=== PATIENT | male | born 1995 | race Caucasian/White ===

== ENCOUNTER 2019-07-22 07:08 | Day surgery (SDC) | payer OTHER, SELFPAY ==
[2019-07-21 16:10] VITALS: BMI 27.6
[2019-07-22] VITALS (9 sets, daily range): BP systolic 102–129; BP diastolic 57–87; PULSE 60–86; RESP 17–20; TEMP 36.2–36.7; O2SAT 94–100
[2019-07-22] MEDS: sodium chloride 0.9% 1,000 ML 30 ML IV (08:00)
--- NOTE | 2019-07-22 08:49 | ANES.PREANES ---
Pre-Anesthetic Assessment Pre-Anesthetic Assessment: Height/Weight: Height 1.85 m Weight 94.801 kg Temp Pulse Resp BP Pulse Ox 97.9 F 78 18 129/83 100 07/22/19 07:23 07/22/19 07:23 07/22/19 07:23 07/22/19 07:23 07/22/19 07:23 Preop Diagnosis: LOOSE BODY RIGHT KNEE Proposed Procedure: Operation Date: 07/22/19 08:40 Proposed Procedures p Knee Arthroscopy 92753 M23.41(Right) - Tim Acuña MD Social: Social History: Tobacco and No alcohol Exam: Pre-Anes Outpt Exam: alert, oriented x 3, clear to auscultation bilaterally and regular rate & rhythm Airway: Submandibular: WNL Cervical ROM: WNL MP: 2 History/ROS: No significant history except as noted Pulmonary: Pulmonary: None reported CV/HEM: CV/HEM: None reported : : None reported Hepatic: Hepatic: None reported GI: GI: GERD Metabolic: Metabolic: None reported Musc/skel: Musc/skel: None reported Neuropsych: Neuropsych: None reported Anesthetic Plan: ASA status: II Anesthesia: Anesthesia Evaluation and General Risk of > 500 ml blood loss (7ml/kg in children): No Meds/Allergies Current Medications: Current Medications Generic Name Dose Route Start Last Admin Trade Name Freq PRN Reason Stop Dose Admin Sodium Chloride 1,000 mls @ 30 ml s/hr 07/22/19 07:30 07/22/19 08:00 Sodium Chloride 0.9% IV 07/23/19 07:29 30 mls/hr .Q24H ROMEO Administration Data Anesthesia Cardiac Studies: No Data to Display
--- NOTE | 2019-07-22 08:58 | PM.HPUD ---
H&P update H&P Update: DATE OF SURGERY/PROCEDURE: 07/22/19 DATE H&P PERFORMED: 07/23/19 H&P UPDATE INFORMATION: H&P completed within last 30 days and No changes to prior documentation PREOP DIAGNOSIS: Loose body right knee PRIMARY INDICATION FOR PROCEDURE: Pain and popping right knee PLANNED PROCEDURE: Operation Date: 07/22/19 08:40 Proposed Procedures p Knee Arthroscopy 80578 M23.41(Right) - Tim Acuña MD Full H&P Medications/Allergies: Current Medications: Current Medications Generic Name Dose Route Start Last Admin Trade Name Freq PRN Reason Stop Dose Admin Sodium Chloride 1,000 mls @ 30 ml s/hr 07/22/19 07:30 07/22/19 08:00 Sodium Chloride 0.9% IV 07/23/19 07:29 30 mls/hr .Q24H ROMEO Administration
[2019-07-22] MEDS: morphine 4 mg/mL SDV 1 mL IVP (09:18)
--- NOTE | 2019-07-22 10:14 | SUR.PHASEI ---
1008 PATIENT TO PACU VIA GURNEY FROM OR AT THIS TIME. RR EVEN AND UNLABORED. PWD. BULKY DRESSING IN PLACE WITH CHERYL WRAP TO RIGHT KNEE. CDI. PULSE PRESENT AND MARKED, CAP REFILL <3 SECONDS.
--- NOTE | 2019-07-22 10:15 | P.OP_ITS ---
Operative Report Date of procedure: 07/22/19 Pre-op Diagnosis: Loose body right knee Post-op diagnosis: same Post-op Findings: Patient had a large loose body approximately 12 mm in diameter embedded in the lateral retinaculum Procedure Done: Removal loose body rigth knee Pathology: none sent Surgeon: Tim Acuña Anesthesia: General Estimated blood loss (mL): 10 Tourniquet time (min): 25 Complications: None Findings: Patient had a loose body approximately 12 mm in diameter embedded in the lateral retinaculum Condition: stable Disposition: PACU Brief History: The patient is a 24-year-old male with mechanical popping and pain over his lateral joint line and a palpable loose body. Removal of the loos e body was chosen to eliminate pain and mechanical symptoms Procedure: The patient was taken to the operating room and given a general anesthesia. He is given 2 g of Ancef. His knee was prepped and infiltrated with 30 cc of 0.5% Marcaine with epi and 10 mg of morphine. A timeout was performed and the leg was draped in the usual fashion. The knee was entered through a standard inferior medial and inferior lateral portal. Diagnostic portion of the arthroscopy was performed. The large loose body was seen embedded within the lateral retinaculum and several smaller loose bodies were identified. The scope was then moved to the medial portal and working through the lateral portal with a shaver I directed the shaver away from the lateral skin the loose body was removed from the surrounding synovium. It was removed piecemeal with a grasper through the lateral portal. The tourniquet was inflated to aid with hemostasis and visualization. Hemostasis provided with the [employer] probe. The tourniquet was deflated. Portals were closed with 3-0 Prolene. Kelvin dressings were applied. The patient was extubated taken to recovery in stable condition.
--- NOTE | 2019-07-22 10:37 | SUR.PHASEI ---
1034 PATIENT TO OPS VIA [employer]. RATES PAIN 8/10, FACES OF 4/10. PATIENT WANTING TO TAKE A PAIN PILL WHEN OVER IN OPS. PATIENT RR EVEN AND UNLABORED. PWD. DRESSING TO RIGHT KNEE, CDI.
[2019-07-22] MEDS: HYDROcodone-acetaminophen 5-325 mg Tablet 1 TAB PO (10:58)
== END 2019-07-22 11:45 | disposition home or self-care (01) ==
PROVIDERS: Family Provider Internal Medicine; Visit Provider Orthopaedic Surgery
PROC: (CPT 29870; principal; 2019-07-22 08:40)
DX: M23.41 Loose body in knee, right knee (principal); F17.210 Nicotine dependence, cigarettes, uncomplicated
CPT/HCPCS: 29874; 12345; 96365; J0690; J2270; J2704; J3010; J3490; J7030

== ENCOUNTER → 2023-04-15 16:17 | Outpatient (BNVA) | payer OTHER, SELFPAY | PROVIDERS: Family Provider Internal Medicine; PCP Clinical Nurse Specialist Adult Health; Visit Provider Clinical Nurse Specialist Adult Health | DX: Z00.00 Encounter for general adult medical examination without abnormal findings (principal) | CPT/HCPCS: 80053; 85025 ==

== ENCOUNTER 2023-05-08 15:57 | Outpatient (CLI) | payer OTHER, SELFPAY ==
--- NOTE | 2023-05-08 16:15 | USR_ITS ---
PROCEDURE INFORMATION: Exam: US Abdomen; Limited Exam date and time: 05/08/2023 4:02 PM Age: 28 years old Clinical indication: Pain; Hip; Right; Patient HX: All appears wnl. No obvious groin hernia ntoed at this time; Additional info: Right groin pain, i suspect a femoral hernia and would like an u/s to assess. TECHNIQUE: Imaging protocol: Real time ultrasound of the abdomen with image documentation. Limited exam focused on the region of clinical interest. COMPARISON: CT abdomen pelvis w con* [id number] 11/04/2016 7:50 PM FINDINGS: The area of clinical concern in the right groin was evaluated. No identifiable hernia, mass, or fluid collection. US/US soft tissue/extremity [id number] IMPRESSION: No abnormal findings.
== END 2023-05-08 15:58 | disposition home or self-care (01) ==
PROVIDERS: PCP Clinical Nurse Specialist Adult Health; Visit Provider Clinical Nurse Specialist Adult Health
DX: R10.31 Right lower quadrant pain (principal); M25.551 Pain in right hip
CPT/HCPCS: 76882